=== PATIENT | female | born 2005 | race Caucasian/White ===

== ENCOUNTER 2024-01-15 13:06 | Day surgery (SDC) | payer BC ==
[2024-01-15] MEDS ORDERED: Bupivacaine 0.25% HCL 30 ML VIAL ONE (13:16)
[2024-01-15] MEDS ORDERED: EPINEPHrine 1 MG/ML VIAL ONE (13:16)
[2024-01-15] MEDS ORDERED: Sodium Chloride 0.9% 100 ML ONE (13:29)
[2024-01-15] MEDS ORDERED: Piperacillin/Tazobactam 3.375 GM VIAL ONE (13:29)
[2024-01-15] MEDS ORDERED: Rocuronium Bromide 10 MG/ML (10ML VIAL) ONE (13:36)
[2024-01-15] MEDS ORDERED: PROPOFOL 40 ML ONE (13:36)
[2024-01-15] MEDS ORDERED: fentaNYL PF 100 MCG/2 ML SYRINGE ONE (13:36)
[2024-01-15] MEDS ORDERED: Lidocaine 1% PF 5 ML VIAL ONE (13:36)
[2024-01-15] MEDS ORDERED: Ondansetron PF 4 MG/2 ML Vial ONE (13:39)
[2024-01-15] MEDS ORDERED: Dexamethasone 4 mg/ml Vial ONE (13:39)
[2024-01-15] MEDS ORDERED: Magnesium 5 GM/10 ML VIAL ONE (13:39)
[2024-01-15] MEDS ORDERED: Dexmedetomidine 200 MCG/2 ML VIAL ONE (13:39)
[2024-01-15] MEDS ORDERED: Ondansetron PF 4 MG/2 ML Vial IVP PRN (14:21)
[2024-01-15] MEDS ORDERED: hydrALAZINE 20 MG/ML VIAL SLOW IVP PRN (14:21)
[2024-01-15] MEDS ORDERED: Dextrose 5% in Water 1,000 ML IV PRN (14:21)
[2024-01-15] MEDS ORDERED: Glucagon 1 MG/ML KIT IM PRN (14:21)
[2024-01-15] MEDS ORDERED: Ipratropium/Albuterol 3 ML NEB NEB PRN (14:21)
[2024-01-15] MEDS ORDERED: Dextrose 50% Abboject 50 ML SYRINGE SLOW IVP PRN (14:21)
[2024-01-15] MEDS ORDERED: Acetaminophen 325 MG TAB PO PRN (14:21)
[2024-01-15] MEDS ORDERED: SUGAMMADEX SODIUM 200 MG/2 ML VIAL ONE (14:23)
[2024-01-15] MEDS ORDERED: HYDROcodone/Acetaminophen 5/325 mg Tablet PO PRN (14:25)
[2024-01-15] MEDS ORDERED: traMADol HCl 50 MG TAB PO PRN (14:25)
[2024-01-15] MEDS ORDERED: HYDROcodone/Acetaminophen 5/325 mg Tablet ONE (14:33)
[2024-01-15] MEDS ORDERED: Meperidine HCl/PF 25 MG (1 mL) VIAL ONE (15:19)
[2024-01-15] MEDS ORDERED: fentaNYL 50 mcg/mL 1 mL Vial ONE (15:19)
[2024-01-15] MEDS ORDERED: Famotidine 20 MG TAB PO SCH (21:00)
[2024-01-15] MEDS ORDERED: Famotidine/PF 20 mg/2ml Vial SLOW IVP SCH (21:00)
== END 2024-01-15 15:53 | disposition home or self-care (01) ==
LOC: SDC 13:06
PROVIDERS: ATTEND Surgery
PROC: 0DTJ4ZZ Resection of Appendix, Percutaneous Endoscopic Approach (ICD-10-PCS; principal; 2024-01-15)
DX: K35.80 Unspecified acute appendicitis (principal)
CPT/HCPCS: 88304; A4649; J0171; J0665; J1100; J2175; J2405; J2543; J2704; J3010; J3475; J3490